=== PATIENT | female | born 1965 | race Hispanic/Latino ===

== ENCOUNTER 2020-11-11 13:42 | Emergency (ER) | payer OTHER ==
[2020-11-11] MEDS ORDERED: DEXAMETHASONE SOD PHOSPHATE 4 MG/ML 5ML VIAL ONE (14:00)
[2020-11-11] MEDS ORDERED: KETOROLAC TROMETHAMINE 30MG/ML ONE (14:13)
[2020-11-11] MEDS ORDERED: GUAIFENESIN-CODEINE 5 ML SYRUP ONE (14:13)
[2020-11-11 14:40] LABS: RAPID GROUP A STREP NEGATIVE (NEGATIVE)
== END 2020-11-11 15:13 | disposition home or self-care (01) ==
LOC: EDH 13:42
DX: U07.1 COVID-19 (principal); R05 Cough; R51.9 Headache, unspecified; E11.9 Type 2 diabetes mellitus without complications; Z90.49 Acquired absence of other specified parts of digestive tract; Z90.710 Acquired absence of both cervix and uterus; Z98.890 Other specified postprocedural states; Z88.5 Allergy status to narcotic agent
CPT/HCPCS: 71045; 87426; 87804 ×2; 87880; 96372 ×2; 99284; J1100; J1885